=== PATIENT | female | born 1940 | race Caucasian/White ===

== ENCOUNTER 2017-02-04 12:22 | Emergency (ER) | payer OTHER ==
[2017-02-04 12:32] VITALS: TEMP 98; BMI 32.3
--- NOTE | 2017-02-04 13:53 | PDOC ---
History of Present Illness - General History Source: Patient Exam Limitations: No Limitations - History of Present Illness Initial Comments: 02/04/17 15:09 The patient is a 76 year old female with a significant PMH of hypertension and spinal stenosis who presents to the emergency department with lower back pain for the past few days. The patient also notes an associated shooting pain down the back of her legs. She reports numbness and heaviness of the legs when walking and sitting down. She also notes that she was recently sitting on a couch and urinated on herself but was unaware of it. The patient denies chest pain, shortness of breath, headache and dizziness. Denies fever, chills, nausea, vomit, diarrhea and constipation. Denies dysuria, frequency, and hematuria. Allergies: Penicillins, Sulf, IV dye Past surgical history: None reported. Social history: Former smoker (smoker for 30 years). No reported alcohol or drug abuse. PCP:Dr. Tolbert <Ann Hendrickson - Last Filed: 02/04/17 15:34> <Phillip Hall - Last Filed: 02/04/17 18:00> - General Chief Complaint: Back Pain Stated Complaint: BACK PAIN Time Seen by Provider: 02/04/17 13:53 Past History <Ann Hendrickson - Last Filed: 02/04/17 15:34> - Past Medical History Anemia: No Asthma: No Cancer: (MGUS) CVA: No COPD: No Diabetes: Yes GI Disorders: Yes (DIVERTICULOSIS) HTN: Yes Other medical history: MS - Surgical History Orthopedic Surgery: Yes (RIGHT KNEE REPLACEMENT 2012) - Immunization History Immunization Up to Date: Yes - Suicide/Smoking/Psychosocial Hx Smoking History: Never smoked Have you smoked in the past 12 months: No If you are a former smoker, when did you quit?: 30yrs Information on smoking cessation initiated: No Hx Alcohol Use: No Drug/Substance Use Hx: No Substance Use Type: None Hx Substance Use Treatment: No <Phillip Hall - Last Filed: 02/04/17 18:00> - Past Medical History Allergies/Adverse Reactions: Allergies Allergy/AdvReac Type Severity Reaction Status Date / Time Penicillins Allergy Verified 02/04/17 12:26 Sulfa (Sulfonamide Allergy Verified 02/04/17 12:26 Antibiotics) IV DYE Allergy Uncoded 02/04/17 12:26 Home Medications: Ambulatory Orders Amlodipine Besylate [Norvasc -] 2.5 mg PO DAILY 11/28/12 Aspirin [ASA -] 81 mg PO DAILY 11/28/12 Carvedilol [Coreg -] 25 mg PO BID 11/28/12 Olmesartan/Hydrochlorothiazide [Benicar Hct 40-12.5 mg Tablet] 1 each PO DAILY 11/28/12 Rosuvastatin Calcium [Crestor] 5 mg PO DAILY 03/30/15 Tramadol HCl 50 mg PO TID #10 tablet MDD 200 02/04/17 Review of Systems - Review of Systems Able to Perform ROS?: Yes Comments:: 02/04/17 15:11 A complete review of 10 out of 10 review of systems is taken and is negative apart from what is previously mentioned below and in the HPI. <Ann Hendrickson - Last Filed: 02/04/17 15:34> *Physical Exam - Vital Signs Last Vital Signs Temp Pulse Resp BP Pulse Ox 98.0 F 60 15 152/74 99 02/04/17 12:27 02/04/17 12:27 02/04/17 12:27 02/04/17 12:27 02/04/17 12:27 - Physical Exam Comments: 02/04/17 15:34 Vitals: Triage Vital signs reviewed General Appearance: no acute distress, well nourished well developed, Head: Atraumatic, normocephalic Neck: Supple;No Nuchal rigidity Chest Wall: Nontender Cardiac: Regular rate and rhythm, no murmurs, no rubs, no gallops, Lungs: Clear to auscultation bilateral, good air movement bilaterally, Abdomen: Soft, nondistended, normal bowel sounds, nontender to palpation Back: (+) Midline back tenderness. Extremities: (+) Left lower extremity weakness. No cyanosis, clubbing, or edema Skin: Warm and dry, no rashes or lesions, no petechiae Neuro: AOX3; Cranial Nerves 2-12 grossly intact, Strength intact to all extremities, Sensation intact to all extremities Psych: normal mood, normal affect. <Ann Hendrickson - Last Filed: 02/04/17 15:34> - Vital Signs Last Vital Signs Temp Pulse Resp BP Pulse Ox 98.0 F 60 15 152/74 99 02/04/17 12:27 02/04/17 12:27 02/04/17 12:27 02/04/17 12:27 02/04/17 12:27 <Phillip Hall - Last Filed: 02/04/17 18:00> Medical Decision Making - Medical Decision Making 02/04/17 17:55 No evidence of cauda equina syndrome on MRI. We'll recommend tramadol and follow -up with neurosurgeon Findings, the need for follow-up and strict return instructions discussed with patient. <Phillip Hall - Last Filed: 02/04/17 18:00> *DC/Admit/Observation/Transfer - Attestations Scribe Attestion: 02/04/17 15:12 Documentation prepared by Ann Hendrickson, acting as medical geneticist for Phillip Hall MD. <Ann Hendrickson - Last Filed: 02/04/17 15:34> <Phillip Hall - Last Filed: 02/04/17 18:00> Diagnosis at time of Disposition: Back pain Qualifiers: Back pain location: low back pain Chronicity: chronic Back pain laterality: bilateral Sciatica presence: with sciatica Sciatica laterality: bilateral sciatica Qualified Code(s): M54.42 - Lumbago with sciatica, left side; M54.41 - Lumbago with sciatica, right side; M54.41 - Lumbago with sciatica, right side; G89.29 - Other chronic pain; G89.29 - Other chronic pain - Discharge Dispostion Disposition: HOME - Referrals Referrals: Alyx Tolbert MD [Primary Care Provider] - Tadeo Tee MD [Staff Physician] - - Patient Instructions Printed Discharge Instructions: Low Back Pain - Post Discharge Activity
[2017-02-04 17:17] VITALS: BP 124/67; PULSE 66
== END 2017-02-04 18:05 | disposition home or self-care (01) ==
LOC: JER 12:22
DX: M54.42 Lumbago with sciatica, left side (principal); M54.41 Lumbago with sciatica, right side; M48.00 Spinal stenosis, site unspecified; I10 Essential (primary) hypertension; E11.9 Type 2 diabetes mellitus without complications; G35 Multiple sclerosis; Z87.19 Personal history of other diseases of the digestive system
CPT/HCPCS: 72148-TC; 99282-25